=== PATIENT | female | born 1950 | race Caucasian/White ===

== ENCOUNTER → 2017-01-10 | Outpatient (CLI) | payer BC ==
[~2017-01-10] MED LIST: 3N1 COMMODE MC; ASPI-781 PO; ERGO500037 PO; LANS30CA PO; OXYC-481 PO; TRAM50TA2 PO; WALK1EAC23 MC
--- NOTE | 2017-01-10 11:24 | RADRPT ---
PROCEDURE: XR bilateral knees. CLINICAL INDICATION: Knee pain. TECHNIQUE: AP weightbearing, lateral weightbearing and sunrise views of each knee are available for review. 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 There is a l eft total knee replacement. There is no evidence of loosening of the prosthesis. There is no eviden ce of hardware failure. The osseous structures are normal in mineralization, architecture and alignm ent No acute fracture or dislocation is seen.No osseous lesions are identified. The soft tissues ar e unremarkable . 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 Unremarkable left total knee replacement RPTAT: [facility] .Jeromy Norman MD, MD Date Time Electronically viewed and signed by .Jeromy Norman MD, on 01/10/2017 11:24 .B/
== END | disposition home or self-care (01) ==
LOC: HKI 09:53
PROVIDERS: ATTEND Orthopaedic Surgery
DX: Z09 Encounter for follow-up examination after completed treatment for conditions other than malignant neoplasm (principal); Z96.653 Presence of artificial knee joint, bilateral; M54.16 Radiculopathy, lumbar region
CPT/HCPCS: 73562; G0463